=== PATIENT | female | born 1995 | race African-American/Black ===

== ENCOUNTER 2017-03-29 14:13 | Emergency (ER) | payer OTHER ==
[2017-03-29 14:30] VITALS: BP 112/67
--- NOTE | 2017-03-29 15:26 | UC ---
Knee Pain HPI - HPI Summary HPI Summary: left knee pain after jumping about 4 feet landed on her feet but her knee buckled and now has continued pain - History of Current Complaint Chief Complaint: UCLowerExtremity Stated Complaint: KNEE INJURY Time Seen by Provider: 03/29/17 15:18 Hx Obtained From: Patient Hx Last Menstrual Period: 03/15/17 ?: No Onset/Duration: Sudden Onset, Lasting Days Severity Initially: Moderate Severity Currently: Mild Location Of Injury: left knee Pain Intensity: 5 Pain Scale Used: 0-10 Numeric Character: Aching, Stiffness Aggravating Factor(s): Movement, Weight Bearing Alleviating Factor(s): Rest Associated Signs And Symptoms: Positive: Negative Able to Bear Weight: Yes - Allergies/Home Medications Allergies/Adverse Reactions: Allergies Allergy/AdvReac Type Severity Reaction Status Date / Time No Known Allergies Allergy Verified 03/29/17 14:26 PMH/Surg Hx/FS Hx/Imm Hx Previously Healthy: No Other History Of: Negative For: Anticoagulant Therapy - Surgical History Surgical History: Yes Surgery Procedure, Year, and Place: L knee ACL/meniscus repair X2 - Family History Known Family History: Positive: Unknown - Social History Occupation: Unemployed Lives: With Family Alcohol Use: Occasionally Substance Use Type: Marijuana Substance Use Comment - Amount & Last Used: last use x 2 days ago Smoking Status (MU): Never Smoked Tobacco Review of Systems Constitutional: Negative Skin: Negative Eyes: Negative ENT: Negative Respiratory: Negative Cardiovascular: Negative Gastrointestinal: Negative Genitourinary: Negative Motor: Negative Neurovascular: Negative Musculoskeletal: Arthralgia - internal discomfort in left knee Neurological: Negative Psychological: Negative Is Patient Immunocompromised?: No All Other Systems Reviewed And Are Negative: Yes Physical Exam Triage Information Reviewed: Yes Appearance: Well-Appearing, No Pain Distress, Ill-Appearing Vital Signs: Initial Vital Signs Temp 99.2 F 03/29/17 14:27 Pulse 67 03/29/17 14:27 Resp 15 03/29/17 14:27 BP 112/67 03/29/17 14:27 Pulse Ox 99 03/29/17 14:27 Vital Signs Reviewed: Yes Eye Exam: Normal Eyes: Positive: Conjunctiva Clear ENT Exam: Normal ENT: Positive: Normal ENT inspection, Hearing grossly normal. Negative: Nasal congestion, Nasal drainage, Trismus, Muffled/hoarse voice Dental Exam: Normal Neck exam: Normal Neck: Positive: Supple, Nontender Respiratory Exam: Normal Respiratory: Positive: No respiratory distress, No accessory muscle use Cardiovascular Exam: Normal Cardiovascular: Positive: RRR, Pulses Normal, Brisk Capillary Refill Musculoskeletal Exam: Normal Musculoskeletal: Positive: Strength Intact, ROM Intact, No Edema, ROM Limited @ - pain with ROM Neurological Exam: Normal Neurological: Positive: Alert, Muscle Tone Normal Psychological Exam: Normal Skin Exam: Normal Diagnostics - Radiology No standard instances Xray Interpretation: Positive (See Comments) - soft tissue swelling, joint effusion Radiology Interpretation Completed By: Radiologist Knee Pain Course/Dx - Course Course Of Treatment: NSAID, knee brace (perfers to use her brace from home), follow with orthopedic MD - Differential Dx/Diagnosis Differential Diagnosis/HQI/PQRI: Contusion, Fracture (Closed), Internal Derangement Of Knee, Sprain, Strain Provider Diagnoses: Joint effusion left knee Discharge - Discharge Plan Condition: Stable Disposition: HOME Patient Education Materials: Ibuprofen (By mouth), Swollen Knee Joint (ED), Knee Pain (ED), RICE Therapy (ED) Referrals: [facility] [Provider Group] - 5 Days
--- NOTE | 2017-03-29 16:00 | RAD ---
INDICATION: Left knee injury. TECHNIQUE: 4 views of the left knee were obtained. FINDINGS: The bones are normal alignment. There is medial soft tissue swelling. There is a joint effusion present. No fracture is seen. The patient is status post anterior cruciate ligament repair. There is mild osteoarthritic change in the medial compartment. IMPRESSION: 1. SOFT TISSUE SWELLING AND JOINT EFFUSION, NO FRACTURE IS SEEN. 2. STATUS POST ANTERIOR CRUCIATE LIGAMENT REPAIR. 3. MILD OSTEOARTHRITIC CHANGE.
== END 2017-03-29 16:26 | disposition home or self-care (01) ==
LOC: UCEAST 14:13
DX: M25.462 Effusion, left knee (principal); F12.90 Cannabis use, unspecified, uncomplicated
CPT/HCPCS: 99211; G0463